=== PATIENT | female | born 1950 | race Caucasian/White ===

== ENCOUNTER 2018-12-20 20:41 | Emergency (ER) | payer MEDICARE, OTHER, SELFPAY ==
[~2018-12-20] VITALS: Ht 170.2 cm; Wt 108.8 kg
[2018-12-20] MEDS ORDERED: BETAMETHASONE SOLUSPAN 6MG/ML INJ 5ML (J0702) IM ONE (22:45)
[2018-12-20 23:48] VITALS: BP 170/79
--- NOTE | 2018-12-21 07:34 | REP ---
Clinical: Pain. Technique: Internal rotation, external rotation, and Y view of the right shoulder. Findings: Age-related osteopenia and moderate arthritic changes include cortical irregularity and spurring at the acromioclavicular joint as well as the ossified glenoid rim. No acute fracture or dislocation. Subacromial space is normal. No periarticular calcifications or loose bodies are identified. Impression: Osteopenia and early moderate arthritic changes. Electronically Signed by Jhony Heart MD 12/21/2018 07:26 A
--- NOTE | 2018-12-21 20:14 | ECGEPIP ---
[facility] - ED Test Date: 2018-12-20 Pat Name: BUDDY TIWARI Department: Room: - Gender: Female Time Signal Wirer: : 1950 Requested By: AROLDO GONZALES Order Number: [id number] Reading MD: Ben Durant Measurements Intervals [place] Rate: 100 P: 34 WV: 180 QRS: 133 QRSD: 115 T: 90 QT: 373 QTc: 481 Interpretive Statements SINUS TACHYCARDIA RIGHTWARDD AXIS LEFT POSTERIOR FASCICULAR BLOCK PROBABLE INFERIOR MYOCARDIAL INFARCTION, PROBABLY OLD DELAYED R WAVE PROGRESSION PROLONGED QTC NO PRIOR ECG FOR COMPARISON Electronically Signed on 12-21-2018 20:14:05 EDT by Ben Durant
== END 2018-12-20 23:56 | disposition home or self-care (01) ==
LOC: M ED 20:41
DX: M19.011 Primary osteoarthritis, right shoulder (principal); M75.31 Calcific tendinitis of right shoulder; M85.811 Other specified disorders of bone density and structure, right shoulder; K21.9 Gastro-esophageal reflux disease without esophagitis; I10 Essential (primary) hypertension; E78.5 Hyperlipidemia, unspecified; Z88.0 Allergy status to penicillin
CPT/HCPCS: 73030; 93005; 96372; 99285; J0702

== ENCOUNTER → 2019-03-09 | Outpatient (REF) | payer MEDICARE | LOC: M SFHCPLAZ 13:48 | PROVIDERS: ATTEND Family Medicine | DX: I10 Essential (primary) hypertension (principal); E03.9 Hypothyroidism, unspecified; Z13.220 Encounter for screening for lipoid disorders; Z13.1 Encounter for screening for diabetes mellitus ==

== ENCOUNTER → 2019-04-14 | Outpatient (REF) | payer MEDICARE | LOC: M SFHCPLAZ 11:56 | PROVIDERS: ATTEND Family Medicine | DX: I10 Essential (primary) hypertension (principal); Z13.220 Encounter for screening for lipoid disorders; E03.9 Hypothyroidism, unspecified; Z53.8 Procedure and treatment not carried out for other reasons ==

== ENCOUNTER → 2019-04-14 | Outpatient (CLI) | payer MEDICARE ==
[2019-04-14 14:20] LABS: BLOOD UREA NITROGEN 16 MG/DL (7-18); CALCIUM LEVEL 9.5 MG/DL (8.8-10.2); CARBON DIOXIDE LEVEL 30 MEQ/L (21-32); CHLORIDE LEVEL 107 MEQ/L (98-107); CHOLESTEROL LEVEL 290 MG/DL (<200); CHOLESTEROL RISK RATIO 5.576 (<5); CREATININE FOR GFR 0.91 MG/DL (0.55-1.30); GLOMERULAR FILTRATION RATE > 60.0 (>45); GLUCOSE, FASTING 126 MG/DL (70-100); HDL CHOLESTEROL 52 MG/DL (>40); LDL CHOLESTEROL 205 MG/DL (<100); NON-HDL-C 238 MG/DL; SODIUM LEVEL 142 MEQ/L (136-145); TRIGLYCERIDES LEVEL 166 MG/DL (<150)
== END ==
LOC: M PLALAB 12:15
PROVIDERS: ATTEND Family Medicine
DX: E03.9 Hypothyroidism, unspecified (principal); I10 Essential (primary) hypertension; Z13.220 Encounter for screening for lipoid disorders

== ENCOUNTER → 2019-05-11 | Outpatient (REF) | payer MEDICARE ==
[2019-05-11 13:34] LABS: HEMOGLOBIN A1c 6.9 %
== END ==
LOC: M SFHCPLAZ 10:24
PROVIDERS: ATTEND Internal Medicine
DX: R73.01 Impaired fasting glucose (principal)

== ENCOUNTER 2020-10-23 08:21 | Emergency (ER) | payer MEDICARE ==
[~2020-10-23] VITALS: Ht 162.6 cm; Wt 101.8 kg
[2020-10-23] MEDS ORDERED: methylPREDNISolone 125MG 2ML VIAL IV ONE (08:35)
[2020-10-23 09:04] LABS: HEMATOCRIT 42.8 % (36.0-47.0); HEMOGLOBIN 12.6 g/dl (12.0-15.5); MEAN CORPUSCULAR HEMOGLOBIN 27.6 pg (27.0-33.0); MEAN CORPUSCULAR HGB CONC 29.4 g/dl (32.0-36.5); MEAN CORPUSCULAR VOLUME 93.9 fl (80.0-96.0); PLATELET COUNT, AUTOMATED 116 10^3/uL (150-450); RED BLOOD COUNT 4.56 10^6/uL (4.00-5.40); WHITE BLOOD COUNT 20.6 10^3/uL (4.0-10.0)
[2020-10-23] MEDS ORDERED: NITROGLYCERIN/D5W 100MCG/ML 25 MG in IV 1 EA IV SCH (09:05)
[2020-10-23] MEDS: COMBIVENT RESPIMAT 100-20MCG INHALER 4GM INH SCH ×3 (09:05→10:58)
[2020-10-23] MEDS ORDERED: ASPIRIN 81 MG CHEW TABLET PO ONE (09:10)
[2020-10-23 09:24] LABS: INR 1.31; PARTIAL THROMBOPLASTIN TIME 27.4 SECONDS (25.9-37.0); PROTHROMBIN TIME 16.7 SECONDS (12.7-14.5)
[2020-10-23] MEDS ORDERED: HEPARIN SOD (PORCINE) 5000UNITS/ML 1ML VIAL/SYRINGE IV ONE (09:25)
[2020-10-23] MEDS ORDERED: LevoFLOXacin IV 750 MG in IV 1 EA IV ONE (09:25)
[2020-10-23] MEDS ORDERED: HEPARIN DRIP 25,000 UNITS in IV 1 EA IV SCH (09:25)
[2020-10-23] MEDS ORDERED: LIDOCAINE 2% 5ML JELLY UROJET TOP ONE (09:30)
[2020-10-23 09:35] LABS: BILIRUBIN,DIRECT 0.4 MG/DL (0.0-0.2); CALCIUM LEVEL 8.6 MG/DL (8.8-10.2); CK-MB VALUE MASS 7.8 NG/ML (<3.6); CREATININE FOR GFR 1.49 MG/DL (0.55-1.30); GLOMERULAR FILTRATION RATE 36.9 (>45); MB/CK RELATIVE INDEX 6.05 (< OR =4); POTASSIUM SERUM 4.8 MEQ/L (3.5-5.1); THYROID STIMULATING HORMONE 7.85 uIU/ML (0.358-3.740); THYROXINE (T4) 5.7 UG/DL (4.5-12.0); TOTAL PROTEIN 6.3 GM/DL (6.4-8.2); TROPONIN I 0.95 NG/ML (< 0.10)
[2020-10-23 09:39] LABS: LYMPHOCYTES 12 % (16-44); MONOCYTES 3 % (0-5); NEUTROPHILS 85 % (28-66); NUCLEATED RED BLOOD CELL 1 % (0-0)
[2020-10-23 09:40] LABS: PLATELET ESTIMATE DECREASED (NORMAL)
[2020-10-23 09:41] LABS: ANISOCYTOSIS 1+; OVALOCYTES 1+; POIKILOCYTOSIS 1+
[2020-10-23] MEDS ORDERED: FUROSEMIDE 20MG/2ML VIAL (J1940) IV ONE (10:30)
[2020-10-23 12:35] VITALS: BP 120/76
== END 2020-10-23 12:35 | disposition short-term general hospital (02) ==
LOC: EDBD 08:21 → M ED 08:21
DX: I21.4 Non-ST elevation (NSTEMI) myocardial infarction (principal); J90 Pleural effusion, not elsewhere classified; I11.0 Hypertensive heart disease with heart failure; I50.9 Heart failure, unspecified; R00.0 Tachycardia, unspecified; K21.9 Gastro-esophageal reflux disease without esophagitis; E78.5 Hyperlipidemia, unspecified; E03.9 Hypothyroidism, unspecified; Z88.0 Allergy status to penicillin
CPT/HCPCS: 36600; 51702; 71045; 80048; 80076; 82550; 82553; 82803; 83605; 83880; 84436; 84443; 84484; 85025; 85610; 85730; 87040; 87798; 93005; 93041; 94640; 94660; 94664; 94760; 96365; 96366; 96375; 99285; J1644; J1940; J1956; J2930

== ENCOUNTER → 2020-11-14 | Outpatient (CLI) | payer MEDICARE ==
[2020-11-14 15:42] LABS: BASO # 0.1 10^3/uL (0.0-0.2); BASO % 0.8 % (0.0-1.0); EOS # 0.2 10^3/uL (0.0-0.5); EOS % 2.2 % (0.0-3.0); HEMATOCRIT 35.8 % (36.0-47.0); LYMPH # 1.3 10^3/uL (1.5-5.0); LYMPH % 12.2 % (24.0-44.0); MEAN CORPUSCULAR HEMOGLOBIN 27.6 pg (27.0-33.0); MEAN CORPUSCULAR HGB CONC 30.7 g/dl (32.0-36.5); MEAN CORPUSCULAR VOLUME 89.9 fl (80.0-96.0); MONO % 9.3 % (2.0-8.0); NEUTROPHILS % 74.9 % (36.0-66.0); PLATELET COUNT, AUTOMATED 101 10^3/uL (150-450); RED BLOOD COUNT 3.98 10^6/uL (4.00-5.40); WHITE BLOOD COUNT 10.7 10^3/uL (4.0-10.0)
[2020-11-14 16:06] LABS: CALCIUM LEVEL 9.8 MG/DL (8.8-10.2); CREATININE FOR GFR 1.15 MG/DL (0.55-1.30); GLOMERULAR FILTRATION RATE 49.8 (>45); POTASSIUM SERUM 3.9 MEQ/L (3.5-5.1)
== END ==
LOC: M PLALAB 12:48
PROVIDERS: ATTEND Internal Medicine Clinical Cardiac Electrophysiology
DX: I50.9 Heart failure, unspecified (principal)

== ENCOUNTER 2021-02-12 19:36 | Inpatient (IN) | payer MEDICARE ==
[~2021-02-12] VITALS: Ht 162.6 cm; Wt 91.2 kg
[2021-02-12] MEDS ORDERED: TORS10TA3 PO (19:58)
[2021-02-12] MEDS ORDERED: CLOP75TA2 PO (19:58)
[2021-02-12] MEDS ORDERED: LISI2.5T9 PO (19:58)
[2021-02-12] MEDS ORDERED: METO1TAB7 PO (19:58)
[2021-02-12] MEDS ORDERED: ASPI81CH33 PO (19:58)
[2021-02-12] MEDS ORDERED: SPIR-10 PO (19:58)
[2021-02-12] MEDS ORDERED: ATOR80TA59 PO (19:58)
[2021-02-12] MEDS ORDERED: NS 2,740 ML in IV 1 EA IV ONE (22:20)
[2021-02-12] MEDS ORDERED: CALCIUM GLUCONATE 1,000 MG in D5W MINI-BAG PLUS 100 ML IV ONE (22:35)
[2021-02-12 22:46] LABS: BASO % 0.4 % (0.0-1.0); EOS # 0.5 10^3/uL (0.0-0.5); EOS % 4.3 % (0.0-3.0); HEMATOCRIT 32.5 % (36.0-47.0); HEMOGLOBIN 9.9 g/dl (12.0-15.5); LYMPH # 0.6 10^3/uL (1.5-5.0); LYMPH % 5.4 % (24.0-44.0); MEAN CORPUSCULAR HEMOGLOBIN 26.6 pg (27.0-33.0); MEAN CORPUSCULAR HGB CONC 30.5 g/dl (32.0-36.5); MEAN CORPUSCULAR VOLUME 87.4 fl (80.0-96.0); MONO # 1.1 10^3/uL (0.0-0.8); MONO % 9.9 % (2.0-8.0); NEUTROPHILS # 8.9 10^3/uL (1.5-8.5); NEUTROPHILS % 79.6 % (36.0-66.0); PLATELET COUNT, AUTOMATED 111 10^3/uL (150-450); RED BLOOD COUNT 3.72 10^6/uL (4.00-5.40); WHITE BLOOD COUNT 11.1 10^3/uL (4.0-10.0)
[2021-02-12 23:29] LABS: ALBUMIN 3.3 GM/DL (3.2-5.2); BILIRUBIN,DIRECT 1.8 MG/DL (0.0-0.2); BILIRUBIN,TOTAL 2.3 MG/DL (0.2-1.0); CALCIUM LEVEL 10.1 MG/DL (8.8-10.2); CREATININE FOR GFR 4.1 MG/DL (0.55-1.30); GLOMERULAR FILTRATION RATE 11.5 (>45); POTASSIUM SERUM 6.9 MEQ/L (3.5-5.1); TOTAL PROTEIN 7.2 GM/DL (6.4-8.2)
[2021-02-12] MEDS ORDERED: SODIUM BICARBONATE 8.4% INJ 50 ML SYRINGE IV STA (23:43)
[2021-02-12] MEDS ORDERED: HumuLIN R (REGULAR) INSULIN (NovoLIN R) **100U/ML** PER UNIT SC STA (23:43)
[2021-02-12] MEDS ORDERED: DEXTROSE 50% 50 ML SYRINGE IV STA (23:43)
[2021-02-13 00:51] LABS: RSV AMPLIFICATION NEGATIVE (NEGATIVE)
--- NOTE | 2021-02-13 01:23 | REPVR ---
PROCEDURE INFORMATION: Exam: US Abdomen, Limited; Right Upper Quadrant Exam date and time: 02/13/2021 12:43 AM Age: 70 years old Clinical indication: Abnormal findings; Abnormal lab test; Elevated liver enzymes; Additional info: Elevated lfts TECHNIQUE: Imaging protocol: US abdomen. Real time ultrasound with image documentation. Limited exam focused on the right upper quadrant. COMPARISON: CT ABD PELVIS W/O CONTRAST 02/13/2021 12:01 AM FINDINGS: Liver: The echogenicity of the liver is within normal limits. No liver lesion is identified from the images obtained. The contour of the liver is smooth. The liver measures 12.9 cm. Gallbladder: No calculi or masses are seen in the contracted gallbladder. No pericholecystic fluid is noted. No sonographic Candelaria's sign was reported by the polysomnographic technologist. Common bile duct: The common bile duct is normal in caliber and at the level of the joel hepatis measures 4 mm. Pancreas: The imaged portion of the pancreas is unremarkable. Right kidney: The right kidney is normal in appearance and measures 8.4 cm in length. There is no renal cortical thinning. The renal cortical echogenicity is within normal limits. No renal lesion is seen. There is no hydronephrosis. No obvious stones are seen in the renal collecting system. Intraperitoneal space: No free fluid is seen from the images obtained. IMPRESSION: No sonographic abnormality seen in the right upper quadrant of the abdomen. Electronically signed by: Renaot Montalvo On 02/13/2021 01:23:28 AM
--- NOTE | 2021-02-13 01:23 | REPVR ---
PROCEDURE INFORMATION: Exam: CT Abdomen And Pelvis Without Contrast Exam date and time: 02/12/2021 11:37 PM Age: 70 years old Clinical indication: Acute renal failure, elevated alk phos TECHNIQUE: Imaging protocol: Computed tomography of the abdomen and pelvis without contrast. Radiation optimization: All CT scans at this facility use at least one of these dose optimization techniques: automated exposure control; mA and/or kV adjustment per patient size (includes targeted exams where dose is matched to clinical indication); or iterative reconstruction. COMPARISON: RENAL US 02/12/2021 10:35 PM FINDINGS: Lungs: The imaged portions of the lung bases are clear. The lungs were not fully imaged. Heart: No cardiomegaly or pericardial effusion. Diaphragm: There is a small sliding hiatal hernia. Liver: Unremarkable. No liver lesion is identified. The contour of the liver is smooth. No hepatomegaly is noted. Gallbladder and bile ducts: No calcified gallstones are noted. No gallbladder wall thickening, pericholecystic fluid, or pericholecystic inflammatory changes are identified. No dilation of the bile ducts is noted. Pancreas: Unremarkable. No dilation of the main pancreatic duct is noted. Spleen: Unremarkable. No splenomegaly is noted. Adrenal glands: Unremarkable. No adrenal mass is noted. Kidneys and ureters: There is a 4 mm nonobstructive calculus in a lower pole calyx of the left kidney. No calculi are noted in the right renal collecting system or ureters. No hydronephrosis or hydroureter is present. Stomach and bowel: The intra-abdominal portion of the stomach and small bowel are unremarkable. There is no evidence for a bowel obstruction, diverticulosis, diverticulitis, colitis, perforated viscus, pneumatosis intestinalis, intussusception, or volvulus. Appendix: Normal. There is no evidence for appendicitis. Intraperitoneal space: No free air. No ascites. No abscess. Retroperitoneal space: Unremarkable. Vasculature: The infrarenal abdominal aorta is ectatic and measures up to 2.6 cm. Extensive atherosclerotic calcifications are present. 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 Incidental note is made of small round calcifications in the pelvis, which are compatible with phleboliths. Lymph nodes: No enlarged lymph nodes. Urinary bladder: The partially distended urinary bladder is unremarkable. No stones or masses are seen in the bladder. Reproductive: The uterus is anterverted and unremarkable. The ovaries are unremarkable. Bones/joints: There is no fracture. There are degenerative changes involving the lower thoracic spine and lumbar spine. There is a grade 1 anterolisthesis L4 on L5 and a grade 1 anterolisthesis of L5 on S1 secondary to severe osteoarthritis of the L4-L5 and L5-S1 facet joints. There is chondrocalcinosis and osteoarthritis of the hips and pubic symphysis. Soft tissues: There is a small fat containing umbilical hernia. IMPRESSION: 1. Nonobstructive left nephrolithiasis. 2. 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 3. Small fat containing umbilical hernia. Electronically signed by: Renato Montalvo On 02/13/2021 01:23:04 AM
--- NOTE | 2021-02-13 01:23 | REPVR ---
PROCEDURE INFORMATION: Exam: XR Chest Exam date and time: 02/12/2021 11:03 PM Age: 70 years old Clinical indication: Cough TECHNIQUE: Imaging protocol: XR of the chest. Views: 1 view. COMPARISON: CR PORTABLE CHEST X-RAY 10/23/2020 8:32 AM FINDINGS: Lungs: Unremarkable. No consolidation. No pulmonary edema. Pleural spaces: Unremarkable. No pleural effusion. No pneumothorax. Heart/Mediastinum: Unremarkable. No cardiomegaly. Bones/joints: Unremarkable. IMPRESSION: No acute findings. Electronically signed by: Renato Montalvo On 02/13/2021 01:22:46 AM
--- NOTE | 2021-02-13 01:23 | REPVR ---
PROCEDURE INFORMATION: Exam: US Retroperitoneal Limited, Kidneys Exam date and time: 02/12/2021 11:06 PM Age: 70 years old Clinical indication: Abnormal findings; Abnormal lab test; acute renal failure, hyperkalemia TECHNIQUE: Imaging protocol: Real-time ultrasound of the retroperitoneum with image documentation. Examination was focused on the kidneys. COMPARISON: CT ABD PELVIS W/O CONTRAST 02/13/2021 12:01:56 AM FINDINGS: Right kidney: The right kidney is normal in appearance and measures 9.7 cm in length. There is no renal cortical thinning. The renal cortical echogenicity is within normal limits. No renal lesion is seen. There is no hydronephrosis. No obvious stones are seen in the renal collecting system. Left kidney: The left kidney measures 9.5 cm in length. There is no renal cortical thinning. The renal cortical echogenicity is within normal limits. No renal lesion is seen. The 4 mm calculus in a lower pole collecting system of the left kidney noted in the CT abdomen and pelvis on 02/13/2021 is not identified in this study due to differences in technique. There is no hydronephrosis. Bladder: The urinary bladder was only partially distended at the time of the examination. The bilateral ureteral jets were not visualized in the urinary bladder. IMPRESSION: 1. No acute sonographic findings. No hydronephrosis. 2. The 4 mm calculus in a lower pole collecting system of the left kidney noted in the CT abdomen and pelvis on 02/13/2021 is not identified in this study due to differences in technique. Electronically signed by: Renato Montalvo On 02/13/2021 01:22:35 AM
[2021-02-13] MEDS ORDERED: MORPHINE 4 MG/ML 1ML VIAL/SYRINGE (J2270) IV PRN (02:40)
[2021-02-13] MEDS ORDERED: ONDANSETRON 4MG/2ML VIAL IV ONE (02:40)
[2021-02-13] MEDS: MORPHINE 2 MG/ML 1ML VIAL (J2270) IV PRN ×2 (03:10→05:15)
[2021-02-13] MEDS ORDERED: ACETAMINOPHEN 650 MG SUPP PR PRN (03:20)
[2021-02-13] MEDS ORDERED: SOD POLYSTYRENE SULFONATE SUSP 30 GM/120 ML ENEMA PR ONE (03:20)
[2021-02-13] MEDS ORDERED: SODIUM BICARBONATE 75 MEQ in NS 0.45% 1,000 ML IV SCH (03:20)
[2021-02-13] MEDS ORDERED: NOREPINEPHRINE 4 MG/4 ML AMP As Ordered ONE (03:44)
[2021-02-13] MEDS ORDERED: NOREPINEPHRINE BITARTRATE 8 MG in D5W 492 ML IV SCH ×2 (03:45→06:20)
[2021-02-13] MEDS ORDERED: DOXYCYCLINE HYCLATE 100 MG in D5W MINI-BAG PLUS 100 ML IV SCH (04:00)
--- NOTE | 2021-02-13 04:28 | HPEPDOC ---
[facility] Medical History & Physical Date of Admission Feb 13, 2021 Date of Service: Feb 13, 2021 Attending Physician: DEMI MARX MD History and Physical CHIEF COMPLAINT: Abnormal lab values called in from PCP, Vomiting 5 days HISTORY OF PRESENT ILLNESS: Family not at bedside, report from ED stated that patient had laurie vomiting for 5 days, she stated that everything she took in she would throw up. She was unable to say when it started. She has an kadeem wrap to right foot. toes appear blistered and discolored. She had recent 5th toe amputation but she could not say when that happened. ED workup showed K+ of 6.9 and Creatinine of 4. Her baseline per chart was 0.9. She also shows elevated liver enzymes. Patient otherwise cannot relate medical history. She does know where she is and who she is, but does not know the day. PAST MEDICAL HISTORY: 1. HTN 2. High Cholesterol 3. Dementia 4. CHF PAST SURGICAL HISTORY: 1. Right 5th toe amputation SOCIAL HISTORY: Marital status: Unable to obtain more history FAMILY HISTORY: Patient unable to give history due to medical condition Allergies Coded Allergies Penicillins (Verified Allergy, Intermediate, 12/20/18) REVIEW OF SYSTEMS: ROS ten system review is positive of that mentioned above in the HPI, remaining systems are negative, according to patient. HOME MEDICATIONS: Please see below. PHYSICAL EXAMINATION: VITAL SIGNS: Temperature 97, pulse 91, respiratory rate 36, blood pressure 88/40, GENERAL APPEARANCE: This is a 70 y/o female who appears restless and uncomfortable, with complaints of chest discomfort. Appears disoriented and unable to answer questions. She does speak clearly. Does not hold eye contact HEENT: Eyes normal, face symmetrical, voice intact, hearing intact, GRIS CARDIOVASCULAR: Heart tones regular in rate and rhythm, Blood pressure hypotensive. Being hydrated with IV fluids. LUNGS: Clear throughout, rate tachypneic, oxygen per nasal cannula. ABDOMEN: Round soft with positive bowel sounds, no tenderness to palpation. MUSCULOSKELETAL: AMIN, restless, equal bilateral movement and strength. EXTREMITIES: Right foot with kadeem wrap, toes discolored and blistered, denies pain NEUROLOGICAL: Awake, restless, disoriented. PSYCHIATRIC: Cooperative, anxious. LABORATORY DATA: See below. IMAGING: CXR: No acute findings. Renal US:No acute sonographic findings. No hydronephrosis. Abd CT:1. Nonobstructive left nephrolithiasis. 2. 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 3. Small fat containing umbilical hernia. GB ultrasound:No sonographic abnormality seen in the right upper quadrant of the abdomen. MICROBIOLOGY: Please see below. ASSESSMENT: 1. Acute Renal failure . PLAN: 1. Probably due to vomiting, plus diuretics. Will hold diuretics, IV 1/2 ns with Bicarb at 200/hr 2. Monitor labs 3. Monitor I&O closely, insert martínez cath, q 4 hour I&O 4. Daily weights. 5. Nephrology consult 2. Hyperkalemia Plan 1. hydrate 2. Kayexalate added to the program in ED or insulin and glucose. 3. Recheck potassium and follow closely 3. Hypotension Plan 1. Patient in process of being placed on Levophed, she will be placed on ICU status 2. Monitor per protocol 3. HTN Plan 1. History of hypertension, hold hypertensive meds while hypotensive 4. CHF Plan 1. Hold diuretics 2. Daily weights 3. Monitor respiratory status 5. Hyperlipidemia Plan 1. Continue statin 6. Dementia Plan 1. Report from ED stated she ahd dementia, she is on no medications for dementi a, limited knowledge of severity or accuracy. She is disoriented an unable to give us information at this time. Code status: Full Code DVT prophylaxis with Heparin Admission Status: Full admit, risk stratification is high for deterioration or if not hospitalized, treatment plan expected to involve a two midnight stay. Vital Signs Vital Signs Date Time Temp Pulse Resp B/P (MAP) Pulse Ox O2 Delivery O2 Flow Rate FiO2 02/13/21 03:40 76/46 (56) 02/13/21 03:40 116 100 Nasal Cannula 02/13/21 03:10 20 2.0 02/12/21 19:48 97.0 Laboratory Data Labs 24H Laboratory Tests 2 02/12/21 22:30: POC Troponin I (Misc) 0.01 02/12/21 22:34: Immature Granulocyte % (Auto) 0.4, Neutrophils (%) (Auto) 79.6H, Lymphocytes (%) (Auto) 5.4L, Monocytes (%) (Auto) 9.9H, Eosinophils (%) (Auto) 4.3H, Basophils (%) (Auto) 0.4, Neutrophils # (Auto) 8.9H, Lymphocytes # (Auto) 0.6L, Monocytes # (Auto) 1.1H, Eosinophils # (Auto) 0.5, Basophils # (Auto) 0.0, Nucleated Red Blood Cells % (auto) 0.0, Anion Gap 8, Glomerular Filtration Rate 11.5L, Lactic Acid Level 1.1, Calcium Level 10.1, Total Bilirubin 2.3H, Direct Bilirubin 1.8H, Gamma Glutamyl Transferase 982H, Aspartate Amino Transf (AST/SGOT) 304H, Alanine Aminotransferase (ALT/SGPT) 472H, Alkaline Phosphatase 1035H, Total Protein 7.2, Albumin 3.3, Albumin/Globulin Ratio 0.8L, Lipase 94, Coronavirus (COVID-19)(PCR) NEGATIVE, Influenza Type A (RT-PCR) NEGATIVE, Influenza Type B (RT-PCR) NEGATIVE, Respiratory Syncytial Virus (PCR) NEGATIVE 02/13/21 01:41: Bedside Glucose (Misc Panel) 93 02/13/21 02:35: Bedside Glucose (Misc Panel) 145H CBC/BMP Laboratory Tests 02/12/21 22:34 Microbiology Microbiology 02/12/21 Blood Culture, Received Pending 02/12/21 Blood Culture, Received Pending Home Medications Scheduled Aspirin (Aspirin) 81 Mg Tab.chew, 81 MG PO DAILY for pain Atorvastatin Calcium (Atorvastatin Calcium) 80 Mg Tablet, 80 MG PO DAILY Clopidogrel Bisulfate (Clopidogrel) 75 Mg Tablet, 75 MG PO DAILY Clopidogrel Bisulfate (Clopidogrel) 75 Mg Tablet, 75 MG PO DAILY Lisinopril (Lisinopril) 2.5 Mg Tablet, 2.5 MG PO DAILY Metoprolol Succinate (Metoprolol Succinate) 50 Mg Tab.er.24h, 50 MG PO DAILY Spironolactone (Spironolactone) 25 Mg Tablet, 25 MG PO DAILY Torsemide (Torsemide) 10 Mg Tablet, 10 MG PO DAILY Allergies Coded Allergies: Penicillins (Verified Allergy, Intermediate, 12/20/18) A-FIB/CHADSVASC A-FIB History Current/History of A-Fib/PAF?: No Current PO Anticoag Therapy: No Attending Note Attending Note Initially patient was admitted to PCU for fluid resuscitation however her blood pressure was not responding well and map is less than 65. ED placed a central line and levofed was started. Patient upgraded from PCU to ICU status. Divya Pandey Feb 13, 2021 04:28 DEMI MARX MD Feb 13, 2021 04:50
[2021-02-13] MEDS ORDERED: ATOR80TA59 PO (06:11)
[2021-02-13] MEDS ORDERED: ASPI1CHW3 PO (06:11)
[2021-02-13] MEDS ORDERED: CLOP75TA2 PO (06:11)
[2021-02-13] MEDS ORDERED: SPIR-10 PO (06:11)
[2021-02-13] MEDS ORDERED: LISI2.5T9 PO (06:11)
[2021-02-13] MEDS ORDERED: METO1TAB7 PO (06:11)
[2021-02-13] MEDS ORDERED: NITR4TASL SL (06:11)
[2021-02-13] MEDS ORDERED: TORS10TA3 PO (06:11)
[2021-02-13] MEDS ORDERED: PROAAER10 INH (06:11)
[2021-02-13 06:14] LABS: ALBUMIN 2.7 GM/DL (3.2-5.2); BILIRUBIN,TOTAL 2.4 MG/DL (0.2-1.0); CALCIUM LEVEL 8.6 MG/DL (8.8-10.2); CREATININE FOR GFR 3.88 MG/DL (0.55-1.30); GLOMERULAR FILTRATION RATE 12.2 (>45); POTASSIUM SERUM 6.2 MEQ/L (3.5-5.1); TOTAL PROTEIN 6.2 GM/DL (6.4-8.2)
[2021-02-13] MEDS ORDERED: HOME MED LIST COMPLETE! XX SCH (06:15)
[2021-02-13] MEDS ORDERED: MORPHINE 4 MG/ML 1ML VIAL/SYRINGE (J2270) IV ONE (06:20)
[2021-02-13] MEDS ORDERED: SOD POLYSTYRENE SULFONATE SUSP 15 GM/60 ML UD PO ONE (06:20)
[2021-02-13 06:35] VITALS: BP 130/95
[2021-02-13 07:35] LABS: BASO # 0.1 10^3/uL (0.0-0.2); BASO % 0.6 % (0.0-1.0); EOS # 0.2 10^3/uL (0.0-0.5); EOS % 1.6 % (0.0-3.0); HEMATOCRIT 31.4 % (36.0-47.0); LYMPH # 2.1 10^3/uL (1.5-5.0); LYMPH % 16.7 % (24.0-44.0); MEAN CORPUSCULAR HEMOGLOBIN 26.6 pg (27.0-33.0); MEAN CORPUSCULAR HGB CONC 28.7 g/dl (32.0-36.5); MEAN CORPUSCULAR VOLUME 92.9 fl (80.0-96.0); MONO # 0.9 10^3/uL (0.0-0.8); MONO % 6.9 % (2.0-8.0); NEUTROPHILS # 9.4 10^3/uL (1.5-8.5); NEUTROPHILS % 73.1 % (36.0-66.0); PLATELET COUNT, AUTOMATED 151 10^3/uL (150-450); RED BLOOD COUNT 3.38 10^6/uL (4.00-5.40); WHITE BLOOD COUNT 12.8 10^3/uL (4.0-10.0)
[2021-02-13 08:07] LABS: ALBUMIN 2.6 GM/DL (3.2-5.2); BILIRUBIN,TOTAL 2.3 MG/DL (0.2-1.0); CALCIUM LEVEL 9.1 MG/DL (8.8-10.2); CK-MB VALUE MASS 41.5 NG/ML (<3.6); CREATININE FOR GFR 4.26 MG/DL (0.55-1.30); MAGNESIUM LEVEL 2.7 MG/DL (1.8-2.4); MB/CK RELATIVE INDEX 11.25 (< OR =4); POTASSIUM SERUM 6.9 MEQ/L (3.5-5.1)
--- NOTE | 2021-02-13 08:20 | ROOPDOC ---
[facility] Report Of Operation Report of Operation DATE OF PROCEDURE: 02/13/21 PREPROCEDURE DIAGNOSES: Cardiac arrest requiring intubation airway protection/maintenance POSTPROCEDURE DIAGNOSES: Cardiac arrest requiring intubation airway protection/maintenance PROCEDURE PERFORMED: Endotracheal intubation Physician: Dr. Garry D.O. Precepting physician: Dr. Graeme D.O. PROCEDURE NOTE: We were performing resuscitative efforts on the patient after she went into cardiac arrest. In order to protect and maintain her airway in the setting of asystole arrest, decision was made for a rapid sequence intubation. No paralytics or anesthesia pharmacotherapy was administered due to the arrest. Using a laryngoscope and an endotracheal tube with stylet, the patient was intubated on the first attempt. The stylet was removed and cuff balloon was inflated. Breath sounds were then auscultated on the right side only and it was identified that the endotracheal tube had been advanced too far. At this point the balloon cuff was deflated, the tube was subsequently drawn back to the level of 22 at the lip. The cuff was then reinflated. Appropriate endotracheal tube position was then confirmed by direct visualization of vocal cord passage, fogging of the tube, CO2 colormetric indicator and symmetric breath sounds. The tube was secured at 22 cm at the lips. No post intubation chest x-ray was ordered as the patient unfortunately was unable to be resuscitated after approximately 20 minutes of efforts. BRANT VILLEGAS D.O. Feb 13, 2021 08:20
[2021-02-13] MEDS ORDERED: HEPARIN SOD (PORCINE) 5000UNITS/ML 1ML VIAL/SYRINGE SC SCH (09:00)
[2021-02-13] MEDS ORDERED: PANTOPRAZOLE 40MG VIAL (C9113 PER 1) IV SCH (09:00)
--- NOTE | 2021-02-13 10:05 | REPVR ---
PROCEDURE INFORMATION: Exam: XR Chest Exam date and time: 02/13/2021 5:26 AM Age: 70 years old Clinical indication: Other vascular access device placement or adjustment; Other: Left sided ij attempt; Additional info: Left sided ij attempt. Eval for ptx TECHNIQUE: Imaging protocol: XR of the chest. Views: 1 view. COMPARISON: CR PORTABLE CHEST X-RAY 02/12/2021 10:47 PM FINDINGS: Lungs: Mild increasing interstitial prominence which appears asymmetric, right greater than left. No consolidation. Pleural spaces: No significant pleural effusions. No pneumothorax. Heart/Mediastinum: Cardiomediastinal silhouette is stable. Bones/joints: Bones are stable. IMPRESSION: 1. No evidence of pneumothorax status post attempted vascular access. 2. Mild increasing asymmetric interstitial prominence, which may represent mild edema. Electronically signed by: Jhony Rosario On 02/13/2021 10:05:00 AM
[2021-02-13] MEDS ORDERED: SODIUM BICARBONATE 8.4% INJ 50 ML SYRINGE IV STA (10:17)
[2021-02-13] MEDS ORDERED: EPINEPHrine 1MG/10ML SYRINGE 1.5IN IV STA ×5 (10:17→10:27)
[2021-02-13] MEDS ORDERED: MAG SULF 1GM/100ML (MAG RUN) 1 GM in IV 1 EA IV ONE (10:20)
[2021-02-13] MEDS ORDERED: CALCIUM GLUCONATE 1,000 MG in D5W MINI-BAG PLUS 100 ML IV ONE (10:20)
--- NOTE | 2021-02-13 13:39 | DS.PDOC ---
Discharge Summary General Date of Admission Feb 13, 2021 at 03:19 Date of Discharge 02/13/2021 Primary Care Physician: ALMA COLIN DO Attending Physician: SAIRA SHARP DO Discharge Summary PROCEDURES PERFORMED DURING STAY: Endotracheal intubation ADMITTING DIAGNOSES: 1. Acute renal failure. 2. Hyperkalemia 3. Hypotension 4. CHF 5. Hyperlipidemia 6. Dementia DISCHARGE DIAGNOSES: 1. Cardiac arrest. 2. Ventricular tachycardia status post defibrillation 3. Asystole 4. Acute renal failure 5. Elevated troponin 6. ST depression seen on EKG, chronic 7. Hypotension 8. Hyperkalemia 9. Lactic acidosis 10. Elevated transaminases 11. Cardiogenic shock 12. Hyperlipidemia 13. Congestive heart failure history 14. Dementia 15. Possible [place] 16. Shock liver COMPLICATIONS/CHIEF COMPLAINT: Amando (Acute Kidney Injury),Hyperkalemia. HISTORY OF PRESENT ILLNESS: Patient is a 70-year-old female who presented to the emergency department under the recommendation from the patient's primary care provider who she saw on 02/12/2021. Patient apparently has been vomiting for 5 days and stated that everything she took and she would throw up. Patient was unable to say when it started. She had an Hussain wrap on her right foot, toes appear blistered and discolored. She had recent fifth toe amputation but she could not say when this happened. ED work-up showed a potassium of 6.9 creatinine of 4. Her baseline per the chart was 0.9. She also has elevated liver enzymes. Patient otherwise cannot relate any medical history and she does know where she is in who she is but does not know the date. HOSPITAL COURSE: At the change of the shift, I came into the hospital and received a message that this patient was not doing well. I was on my way to renetta luate the patient when the patient had a max cart called on her while she was still in the emergency department. By the time of my arrival at the emergency department, the patient was sitting up and she was complaining of severe low back pain. I did speak with the emergency department provider who stated that she went into ventricular tachycardia and became unresponsive. 150 mg of IV amiodarone was given and the patient received a 200 J defibrillation attempt which brought the patient back into sinus rhythm. An EKG was performed and did show ST depressions in V3 through V6 however, on review of EKGs from earlier in the night and from 10/23/2020, patient does appear to have ST depressions. Repeat laboratory studies were ordered. Patient continues to complain of low back pain and continue to have her responsiveness wax and wane. Approximately 15 minutes after my arrival, the patient began to have difficulty breathing and we started to ventilate the patient using a [id number]. Initially, we did have a weak thready pulse at this time however, the patient's pulse did diminished to the point where the patient no longer had a pulse. CPR was initiated at this time. Patient received a total of five 1 mg pushes of epinephrine, 1 g calcium gluconate, 2 g mag museum sulfate, and an amp of bicarb. Patient had been on a bicarb drip throughout the night at 200 cc/h. On multiple rhythm checks throughout the patient's max cart, patient was in asystole without a pulse. After 15 minutes of CPR and of asystole despite all of our best resuscitative efforts, the patient was pronounced at this time. Patient's was contacted when the patient became unresponsive and was in cardiac arrest. Patient's was contacted again after the max cart was stopped. Patient was pronounced by myself at 7:35 AM on 02/13/2021. Strip was printed out and placed in the patient's chart confirming asystole. In reviewing the patient's labs that came back after the patient had , patient did have an lactic acidosis most likely secondary to the patient's asystole. Patient did have an elevated troponin that appears to have been drawn prior to the first defibrillation attempt. Patient may have been having possible myocardial infarction although patient she does appear to have ST depressions chronically on her EKG. By blood pressure was attempted to be ob tained but this was very difficult. Patient had been placed on vasopressor therapy with Levophed as the patient's blood pressures were very low after the patient been admitted. Central line have been placed by the emergency department. Patient was intubated. Patient remained hyperkalemic and in acute renal failure despite bicarb drip. Patient received Kayexalate via an enema. DISCHARGE MEDICATIONS: Please see below. ALLERGIES: Please see below. PHYSICAL EXAMINATION ON DISCHARGE: VITAL SIGNS: Please see below. General: Alert but not fully oriented female patient who did appear to be in moderate distress when I walked down into the room initially. Patient became unresponsive and went into cardiac arrest as above. HEENT: Normocephalic, atraumatic, moist mucous membranes. Neck: No lymphadenopathy or thyromegaly Cardiac: Tachycardic rate with a normal rhythm. No murmurs, rubs, or gallops Pulm: Clear to auscultation bilaterally. No wheezes, rhonchi, rales Abd: Nondistended, nontender to palpation, normal bowel sounds Ext: Patient had cold extremities with difficult to palpate peripheral pulses LABORATORY DATA: Please see below. IMAGING: Chest x-ray performed on 02/12/2021 is reported to show no acute findings. Renal ultrasound performed on 02/12/2021 was reported to show no acute sonographic findings. No hydronephrosis. 4 mm calculus in the lower pole collecting system of the left kidney noted in the CT abdomen and pelvis on 02/13/2021 is not identified in the study due to difference in technique. CT of the abdomen pelvis without contrast performed on 02/12/2021 was reported to show nonobstructive left nephrolithiasis. 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 Small fat- containing umbilical hernia. Gallbladder ultrasound performed on 02/13/2021 is ordered show no sonographic abnormality seen in the right upper quadrant of the abdomen. Chest x-ray performed on 02/13/2021 is reported to show no evidence pneumothorax status post attempted vascular access. Mild increase in asymmetric interstitial prominence which may represent mild edema PROGNOSIS: DISPOSITION: DISCHARGE CONDITION: . TIME SPENT ON DISCHARGE: 65 minutes. Vital Signs/I&Os Vital Signs Date Time Temp Pulse Resp B/P (MAP) Pulse Ox O2 Delivery O2 Flow Rate FiO2 02/13/21 06:55 141 72 02/13/21 06:35 130/95 (107) 02/13/21 06:26 20 Room Air 02/13/21 03:10 2.0 02/12/21 19:48 97.0 I&O- Last 24 Hours up to 6 AM 02/13/21 06:00 Intake Total 110 ml Balance 110 ml Laboratory Data Labs 24H Laboratory Tests 2 02/12/21 22:30: POC Troponin I (Misc) 0.01 02/12/21 22:34: Immature Granulocyte % (Auto) 0.4, Neutrophils (%) (Auto) 79.6H, Lymphocytes (%) (Auto) 5.4L, Monocytes (%) (Auto) 9.9H, Eosinophils (%) (Auto) 4.3H, Basophils (%) (Auto) 0.4, Neutrophils # (Auto) 8.9H, Lymphocytes # (Auto) 0.6L, Monocytes # (Auto) 1.1H, Eosinophils # (Auto) 0.5, Basophils # (Auto) 0.0, Nucleated Red Blood Cells % (auto) 0.0, Anion Gap 8, Glomerular Filtration Rate 11.5L, Lactic Acid Level 1.1, Calcium Level 10.1, Total Bilirubin 2.3H, Direct Bilirubin 1.8H, Gamma Glutamyl Transferase 982H, Aspartate Amino Transf (AST/SGOT) 304H, Alanine Aminotransferase (ALT/SGPT) 472H, Alkaline Phosphatase 1035H, Total Protein 7.2, Albumin 3.3, Albumin/Globulin Ratio 0.8L, Lipase 94, Coronavirus (COVID-19)(PCR) NEGATIVE, Influenza Type A (RT-PCR) NEGATIVE, Influenza Type B (RT-PCR) NEGATIVE, Respiratory Syncytial Virus (PCR) NEGATIVE 02/13/21 01:41: Bedside Glucose (Misc Panel) 93 02/13/21 02:35: Bedside Glucose (Misc Panel) 145H 02/13/21 05:14: Anion Gap 10, Glomerular Filtration Rate 12.2L, Calcium Level 8.6L, Total Bilirubin 2.4H, Aspartate Amino Transf (AST/SGOT) 232H, Alanine Aminotransferase (ALT/SGPT) 388H, Alkaline Phosphatase 1015H, Total Protein 6.2L, Albumin 2.7L, Albumin/Globulin Ratio 0.8L 02/13/21 05:37: Urine Color YELLOW, Urine Appearance CLOUDYH, Urine pH 5.0, Urine Specific Ney 1.013, Urine Protein 1+H, Urine Glucose (UA) NEGATIVE, Urine Ketones NEGATIVE, Urine Blood 2+H, Urine Nitrite NEGATIVE, Urine Bilirubin NEGATIVE, Urine Urobilinogen 0.2, Urine Leukocyte Esterase NEGATIVE, Urine WBC (Auto) 4H, Urine RBC (Auto) 2, Urine Hyaline Casts (Auto) 1, Urine Bacteria (Auto) NEGATIVE, Urine Squamous Epithelial Cells 0, Urine Amorphous Sediment MODERATEH, Urine Sperm (Auto) 02/13/21 05:59: Bedside Glucose (Misc Panel) 142H 02/13/21 06:44: Troponin I High Sensitivity 1713.0*H 02/13/21 07:00: POC Glucose (Misc Panel) 241H, POC Sodium (Misc Panel) 135L, POC Potassium (Misc Panel) 6.4*H, POC Chloride (Misc Panel) 112H, POC Total CO2 (Misc Panel) 13.0L, POC Blood Urea Nitrogen (Misc Panel 133H, POC Ionized Calcium (Misc Panel) 4.9, POC Creatinine (Misc Panel) 3.9H, POC Hematocrit (Misc Panel) 32.0L 02/13/21 07:24: Immature Granulocyte % (Auto) 1.1, Neutrophils (%) (Auto) 73.1H, Lymphocytes (%) (Auto) 16.7L, Monocytes (%) (Auto) 6.9, Eosinophils (%) (Auto) 1.6, Basophils (%) (Auto) 0.6, Neutrophils # (Auto) 9.4H, Lymphocytes # (Auto) 2.1, Monocytes # (Auto) 0.9H, Eosinophils # (Auto) 0.2, Basophils # (Auto) 0.1, Nucleated Red Blood Cells % (auto) 0.0, Anion Gap 14, Glomerular Filtration Rate 11.0L, Lactic Acid Level 8.7*H, Calcium Level 9.1, Magnesium Level 2.7H, Total Bilirubin 2.3H, Aspartate Amino Transf (AST/SGOT) 662H, Alanine Aminotransferase (ALT/SGPT) 711H, Alkaline Phosphatase 971H, Total Creatine Kinase 369H, Creatine Kinase MB 41.5H, Creatine Kinase MB Relative Index 11.25H, Troponin I High Sensitivity 2289.0*H, Total Protein 6.0L, Albumin 2.6L, Albumin/Globulin Ratio 0.8L CBC/BMP Laboratory Tests 02/12/21 22:34 02/13/21 05:14 02/13/21 07:24 FSBS Laboratory Tests Test 02/13/21 01:41 02/13/21 02:35 02/13/21 05:59 Range/Units Bedside Glucose (Misc Panel) 93 145 142 80-115 MG/DL Microbiology Microbiology 02/12/21 Blood Culture, Received Pending 02/12/21 Blood Culture, Received Pending Discharge Medications Scheduled Aspirin (Aspirin) 81 Mg Tab.chew, 81 MG PO DAILY, (Reported) Atorvastatin Calcium (Atorvastatin Calcium) 80 Mg Tablet, 80 MG PO DAILY, (Reported) Clopidogrel Bisulfate (Clopidogrel) 75 Mg Tablet, 75 MG PO DAILY, (Reported) Lisinopril (Lisinopril) 2.5 Mg Tablet, 2.5 MG PO DAILY, (Reported) Metoprolol Succinate (Metoprolol Succinate) 50 Mg Tab.er.24h, 50 MG PO DAILY, (Reported) Spironolactone (Spironolactone) 25 Mg Tablet, 12.5 MG PO DAILY, (Reported) Torsemide (Torsemide) 10 Mg Tablet, 10 MG PO DAILY, (Reported) Scheduled PRN Albuterol Sulfate (Proair Hfa) 8.5 Gm Hfa.aer.ad, 2 PUFF INH Q4H PRN for SHORTNESS OF BREATH, (Reported) Nitroglycerin (Nitrostat) 0.4 Mg Tab.subl, 0.4 MG SL NITRO PRN for CHEST PAIN, (Reported) Allergies Coded Allergies: Penicillins (Verified Allergy, Intermediate, 12/20/18) SAIRA SHARP DO Feb 13, 2021 13:39
--- NOTE | 2021-02-13 19:26 | ECGEPIP ---
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
--- NOTE | 2021-02-14 07:25 | ECGEPIP ---
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 : 1950 Requested By: SAIRA SHARP Order Number: [id number] Reading MD: Peter Bryant Measurements Intervals [place] Rate: 75 P: DE: 176 QRS: -65 QRSD: 144 T: 124 QT: 422 QTc: 471 Interpretive Statements Sinus rhythm with sinus arrhythmia with occasional fusion complexes Left axis deviation Nonspecific intraventricular block Minimal voltage criteria for LVH Cannot rule out Septal infarct , age undetermined Marked ST abnormality, possible anterior subendocardial injury Very wide QRS complex, consider acidosis, hypekalemia, drug effect Since 2:43 same day QRS complex is wider and STT abnormalities are more p pronounced Electronically Signed on 02-14-2021 7:25:38 EST by Peter Bryant
--- NOTE | 2021-02-16 08:59 | ED PDOC ---
Post-Departure Follow-Up radiology report faxed to jolly Nichols Sarah MD Feb 16, 2021 08:59
== END 2021-02-13 07:38 | disposition expired | DRG 682 ==
LOC: M ED 19:36 → UNDOADMIN 02-13 03:19 → M ED INP 02-13 03:19 → M ED 02-13 10:36 → UNDODISIN 02-14 09:59
PROVIDERS: ADMIT Family Medicine; ATTEND Family Medicine
PROC: 0BH17EZ Insertion of Endotracheal Airway into Trachea, Via Natural or Artificial Opening (ICD-10-PCS; principal; 2021-02-13)
DX: N17.9 Acute kidney failure, unspecified (principal); K72.00 Acute and subacute hepatic failure without coma; I21.9 Acute myocardial infarction, unspecified; I47.2 Ventricular tachycardia; E87.2 Acidosis; E87.5 Hyperkalemia; I95.9 Hypotension, unspecified; I11.0 Hypertensive heart disease with heart failure; I50.9 Heart failure, unspecified; E78.5 Hyperlipidemia, unspecified; F03.90 Unspecified dementia, unspecified severity, without behavioral disturbance, psychotic disturbance, mood disturbance, and anxiety; Z79.82 Long term (current) use of aspirin; Z79.899 Other long term (current) drug therapy; Z88.0 Allergy status to penicillin; I46.9 Cardiac arrest, cause unspecified; R57.0 Cardiogenic shock

== ENCOUNTER → 2021-02-12 | Outpatient (CLI) | payer MEDICARE ==
[~2021-02-12] MED LIST: ASPI1CHW3 PO; ASPI81CH33 PO; ATOR80TA59 PO; CLOP75TA2 PO; LISI2.5T9 PO; METO1TAB7 PO; NITR4TASL SL; PROAAER10 INH; SPIR-10 PO; TORS10TA3 PO
[2021-02-12 15:22] LABS: BASO # 0.1 10^3/uL (0.0-0.2); BASO % 0.6 % (0.0-1.0); EOS # 0.4 10^3/uL (0.0-0.5); EOS % 4.4 % (0.0-3.0); HEMATOCRIT 31.2 % (36.0-47.0); HEMOGLOBIN 10.1 g/dl (12.0-15.5); LYMPH # 0.6 10^3/uL (1.5-5.0); LYMPH % 6.3 % (24.0-44.0); MEAN CORPUSCULAR HEMOGLOBIN 28.9 pg (27.0-33.0); MEAN CORPUSCULAR HGB CONC 32.4 g/dl (32.0-36.5); MEAN CORPUSCULAR VOLUME 89.4 fl (80.0-96.0); MONO # 0.7 10^3/uL (0.0-0.8); MONO % 7.7 % (2.0-8.0); NEUTROPHILS # 7.6 10^3/uL (1.5-8.5); NEUTROPHILS % 80.4 % (36.0-66.0); PLATELET COUNT, AUTOMATED 106 10^3/uL (150-450); RED BLOOD COUNT 3.49 10^6/uL (4.00-5.40); WHITE BLOOD COUNT 9.5 10^3/uL (4.0-10.0)
[2021-02-12 15:59] LABS: HEMOGLOBIN A1c 6.4 %
[2021-02-12 18:10] LABS: ALBUMIN 3.3 GM/DL (3.2-5.2); BILIRUBIN,TOTAL 1.9 MG/DL (0.2-1.0); CALCIUM LEVEL 10.4 MG/DL (8.8-10.2); CREATININE FOR GFR 3.72 MG/DL (0.55-1.30); FREE T4 0.86 NG/DL (0.76-1.46); GLOMERULAR FILTRATION RATE 12.9 (>45); POTASSIUM SERUM 6.5 MEQ/L (3.5-5.1); THYROID STIMULATING HORMONE 5.61 uIU/ML (0.358-3.740); TOTAL PROTEIN 7.3 GM/DL (6.4-8.2)
== END ==
LOC: M PLALAB 12:16
PROVIDERS: ATTEND Student in an Organized Health Care Education/Training Program
DX: Z13.1 Encounter for screening for diabetes mellitus (principal); I73.9 Peripheral vascular disease, unspecified; L97.514 Non-pressure chronic ulcer of other part of right foot with necrosis of bone; E03.9 Hypothyroidism, unspecified; Z79.82 Long term (current) use of aspirin; Z79.899 Other long term (current) drug therapy

== ENCOUNTER → 2021-02-12 | Outpatient (REF) | payer MEDICARE | LOC: M SFHCPLAZ 12:02 | PROVIDERS: ATTEND Family Medicine | DX: Z53.9 Procedure and treatment not carried out, unspecified reason (principal) ==